=== PATIENT | male | born 1995 | race Caucasian/White ===

== ENCOUNTER 2024-05-31 14:54 | Emergency (ER) | payer OTHER ==
[~2024-05-31] VITALS: Ht 175.3 cm; Wt 79.5 kg
[~2024-05-31 14:54] MED LIST: ACET-897 PO; ADME100I2; AUGM875T28 PO; BASA100I SC; CEPH500C PO; IBUP80TA PO; INSU100I6 SC; NOVOINJ SC; NOVOINJ3 SC; SILV1CRE60 TOP
[2024-05-31 15:07] VITALS: TEMP 97.9
[2024-05-31 17:57] VITALS: BP 129/79; O2SAT 100
== END 2024-05-31 17:59 | disposition home or self-care (01) ==
LOC: M ED 14:54
DX: M94.0 Chondrocostal junction syndrome [Tietze] (principal); R07.89 Other chest pain; E10.9 Type 1 diabetes mellitus without complications; F17.200 Nicotine dependence, unspecified, uncomplicated; Z79.4 Long term (current) use of insulin